=== PATIENT | male | born 1955 ===

== ENCOUNTER 2017-05-18 08:59 | Emergency (ER) | payer BC, MEDICARE, OTHER ==
--- NOTE | 2017-05-18 09:41 | UC ---
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 LAST DOSE 05/10/17. DURING LAST TWO DAYS, RASH HAD BEGUN TO RETURN - History of Current Complaint Chief Complaint: UCSkin Time Seen by Provider: 05/18/17 09:07 Stated Complaint: RASH Hx Obtained From: Patient Onset/Duration: Gradual Onset, Lasting Days, Still Present Skin Exposure Onset/Duration: Days Ago Onset Severity: Mild Current Severity: Mild Pain Intensity: 0 Pain Scale Used: 0-10 Numeric Character: Redness Aggravating: Nothing Alleviating: Nothing Associated Signs & Symptoms: Positive: Rash, Red Streaks. Negative: Fever, Chills, Cough, Wheezing, Chest Pain, Hoarseness, Throat Tightening, Syncope, Drainage, Bruising, Tenderness Related History: Possible Reaction to: Environmental Exposure - Allergy/Home Medications Allergies/Adverse Reactions: Allergies Allergy/AdvReac Type Severity Reaction Status Date / Time No Known Allergies Allergy Verified 05/18/17 09:06 Home Medications: Home Medications Atorvastatin* [Lipitor 40 MG*] 40 mg PO DAILY 05/18/17 [History Confirmed ] Gabapentin CAP(*) [Neurontin 300 CAP(*)] 300 mg PO BEDTIME 05/18/17 [History Confirmed 05/18/17] Insulin Glargine [Lantus Solostar 5x3 ML PENS] 3 ml SUBCUT DAILY 05/18/17 [ History Confirmed 05/18/17] Meloxicam 7.5 mg PO DAILY 05/18/17 [History Confirmed 05/18/17] [place]-3 Fatty Acids [Fish Oil] 1,000 mg PO DAILY 05/18/17 [History Confirmed ] Omeprazole CAP* [Prilosec CAP* 20 MG] 20 mg PO DAILY 05/18/17 [History Confirmed 05/18/17] Oxycodone W/ Acetaminophen [Percocet 2.5-325 mg (NF)] 1 tab PO Q6HR PRN [History Confirmed 05/18/17] Saxagliptin HCl [Onglyza] 5 mg PO DAILY 05/18/17 [History Confirmed 05/18/17] Review of Systems Constitutional: Negative Skin: Rash Eyes: Negative ENT: Negative Respiratory: Negative Cardiovascular: Negative Gastrointestinal: Negative Genitourinary: Negative Motor: Negative Neurovascular: Negative Musculoskeletal: Negative Neurological: Negative Psychological: Negative All Other Systems Reviewed And Are Negative: Yes PMH/Surg Hx/FS Hx/Imm Hx Previously Healthy: Yes - Surgical History Surgical History: Yes Surgery Procedure, Year, and Place: Left Knee Surgery - Family History Known Family History: Positive: Diabetes - Social History Occupation: Employed Full-time Lives: With Family Alcohol Use: None Substance Use Type: None Smoking Status (MU): Never Smoked Tobacco Physical Exam Triage Information Reviewed: Yes Appearance: Well-Appearing, No Pain Distress, Well-Nourished Vital Signs: Initial Vital Signs Temp 96.9 F 05/18/17 09:01 Pulse 62 05/18/17 09:01 Resp 16 05/18/17 09:01 BP 171/74 05/18/17 09:01 Pulse Ox 98 05/18/17 09:01 Vital Signs Reviewed: Yes Eye Exam: Normal ENT Exam: Normal ENT: Positive: Normal ENT inspection, TMs normal Dental Exam: Normal Neck exam: Normal Respiratory Exam: Normal Respiratory: Positive: Chest non-tender, Lungs clear, Normal breath sounds Cardiovascular Exam: Normal Cardiovascular: Positive: RRR Abdominal Exam: Normal Musculoskeletal Exam: Normal Neurological Exam: Normal Psychological Exam: Normal Skin: Positive: rashes Course/Dx - Differential Diagnoses - Skin Complaint Differential Diagnoses: Cellulitis, Contact Dermatitis - Diagnoses Provider Diagnoses: CELLULITIS Discharge - Discharge Plan Condition: Stable Disposition: HOME Prescriptions: Cephalexin CAP* [Keflex CAP*] 500 mg PO QID #40 cap Hydrocortisone 1% CREAM* [Hytone Cream 1%*] 1 applic TOPICAL TID #1 tube Patient Education Materials: Cellulitis (ED) Referrals: [facility] [place] [facility] [Outside] No Primary Care Phys,NOPCP [Primary Care Provider] -
== END 2017-05-18 09:20 | disposition home or self-care (01) ==
LOC: UCEAST 08:59
DX: L03.90 Cellulitis, unspecified (principal); Z79.4 Long term (current) use of insulin
CPT/HCPCS: 99202; G0463